=== PATIENT | female | born 1985 | race Caucasian/White ===

== ENCOUNTER 2021-05-12 10:56 | Emergency (ER) | payer MEDICAID ==
[~2021-05-12] VITALS: Ht 157.5 cm; Wt 75.7 kg
--- NOTE | 2021-05-12 10:58 | NUR ---
PT CAME TO ER C/O CHRONIC LOWER BACK PAIN "FOR SEVERAL YEARS," WORSE THIS MORNING, RADIATING TO L LEG. PAIN RATED 8/10. DENIES NUMBNESS/TINGLING. DENIES RECENT FALL. HX OF SNOWBOARDING. AAOX4, AMBULATORY WITH ASSISTANCE, ASSISTED TO ER BED 1, LAYING ON R SIDE. AWAITING MD FOR EVAL.
--- NOTE | 2021-05-12 11:17 | NUR ---
AT [facility]
[2021-05-12] MEDS ORDERED: HYDR-4275 PO (11:22)
[2021-05-12] MEDS ORDERED: KETOROLAC TROMETHAMINE INJ 30 MG/ML VIAL ONE (11:28)
[2021-05-12] MEDS ORDERED: KETOROLAC TROMETHAMINE INJ 60 MG/2 ML VIAL IM ONE (11:30)
[2021-05-12 11:40] VITALS: BP 132/86
== END 2021-05-12 11:40 | disposition home or self-care (01) ==
LOC: ER 11:04
DX: M54.50 Low back pain, unspecified (principal); G89.29 Other chronic pain
CPT/HCPCS: 96372; 99283; J1885